=== PATIENT | female | born 1990 | race Caucasian/White ===

== ENCOUNTER 2017-06-07 15:39 | Emergency (ER) | payer MEDICAID ==
[~2017-06-07] VITALS: Ht 170.2 cm; Wt 81.7 kg
[~2017-06-07 15:39] MED LIST: HYDR-569 PO; METH-360 PO; NO HOME MEDS; ONDA8TAB6 PO; PHEN-873 PO; ZOF4T PO
[2017-06-07 16:22] LABS: BASOPHILS % (AUTO) 0.3 % (0-1); EOSINOPHILS # (AUTO) 0.3 X10'3 (0-0.9); EOSINOPHILS % (AUTO) 2.5 % (0-6); HEMATOCRIT 36.4 % (35.0-45.0); HEMOGLOBIN 12.4 g/dl (12.0-16.0); LYMPHOCYTES # (AUTO) 2.1 X10'3 (1.1-4.8); LYMPHOCYTES % (AUTO) 20.4 % (21-51); MEAN CORPUSCULAR HEMOGLOBIN 29.8 PG (27.0-31.0); MEAN CORPUSCULAR HGB CONC 34.2 % (33.0-36.5); MEAN CORPUSCULAR VOLUME 87.2 FL (78-98); MEAN PLATELET VOLUME 9.2 FL (7.4-10.4); MONOCYTES # (AUTO) 0.7 X10'3 (0-0.9); MONOCYTES % (AUTO) 7.1 % (2-12); NEUTROPHILS # (AUTO) 7.2 X10'3 (1.8-7.7); NEUTROPHILS % (AUTO) 69.7 % (42-75); PLATELET COUNT 313 X10'3 (140-440); RED BLOOD COUNT 4.18 X10'6 (4.20-5.60); RED CELL DISTRIBUTION WIDTH 15.6 % (11.5-14.5); WHITE BLOOD COUNT 10.4 X10'3 (4.5-11.0)
[2017-06-07 16:32] LABS: PROTHROMBIN TIME 10.2 SECONDS (9.0-12.0)
[2017-06-07 16:36] LABS: CLARITY,URINE Clear (Clear); COLOR,URINE Yellow (Yellow); GLUCOSE, URINE Negative (Neg); KETONES,URINE Negative (Neg); LEUKOCYTE ESTERASE ,URINE Trace (Neg); NITRITES, URINE Negative (Neg); OCCULT BLOOD,URINE Small (Neg); PROTEIN,URINE Negative (Neg)
[2017-06-07 16:37] LABS: ALANINE AMINOTRANSFERASE 23 U/L (12-78); ALBUMIN 3.9 G/DL (3.4-5.0); ALBUMIN/GLOBULIN RATIO 1.1 (1.1-1.5); ALKALINE PHOSPHATASE 58 IU/L (46-116); ANION GAP 10 (8-16); ASPARTATE AMINO TRANSFERASE 21 U/L (10-37); BILIRUBIN,TOTAL 0.3 MG/DL (0.1-1.0); BLOOD UREA NITROGEN 8 MG/DL (7-18); BUN/CREATININE RATIO 9.5 (6.6-38.0); CALCIUM 8.9 MG/DL (8.5-10.1); CHLORIDE 107 MMOL/L (99-107); CREATININE 0.84 MG/DL (0.40-0.90); GLUCOSE 110 MG/DL (70-104); POTASSIUM 3.5 MMOL/L (3.5-5.1); SODIUM 143 MMOL/L (135-145); TOTAL CARBON DIOXIDE 25.9 MMOL/L (24-32); TOTAL PROTEIN 7.5 G/DL (6.4-8.2); eGFR 80 ML/MIN
[2017-06-07 16:38] LABS: UA COLLECTION TYPE CLN CATCH MIDSTREAM
[2017-06-07 16:39] LABS: URINE HCG NEGATIVE (NEG)
[2017-06-07 16:44] LABS: BACTERIA,URINE FEW /HPF (Neg); RBC,URINE 0-2 /HPF (0-2); SQUAMOUS EPITHELIAL CELL,UR FEW /LPF (FEW); WBC,URINE 0-4 /HPF (0-4)
[2017-06-07] MEDS ORDERED: LORazepam 1 MG tablet PO ONE (17:20)
[2017-06-07 17:35] VITALS: BP 147/98
== END 2017-06-07 17:38 | disposition home or self-care (01) ==
LOC: ER 15:40
DX: N94.6 Dysmenorrhea, unspecified (principal)
CPT/HCPCS: 36415; 80053; 81001; 81025; 85025; 85610; 87088; 99284

== ENCOUNTER 2018-12-30 14:17 | Emergency (ER) | payer MEDICAID ==
[~2018-12-30] VITALS: Ht 167.6 cm; Wt 85.9 kg
[~2018-12-30 14:17] MED LIST changes: +ALBU18HF2 IH; +HYDR-4383 PO; -HYDR-569 PO; +PHEN-786 PO; -PHEN-873 PO
[2018-12-30 16:11] VITALS: BP 114/76
== END 2018-12-30 17:58 | disposition home or self-care (01) ==
LOC: ER 14:17
DX: J20.9 Acute bronchitis, unspecified (principal); J45.909 Unspecified asthma, uncomplicated; F41.9 Anxiety disorder, unspecified; F17.200 Nicotine dependence, unspecified, uncomplicated
CPT/HCPCS: 99281

== ENCOUNTER 2024-08-31 18:29 | Emergency (ER) | payer MEDICAID, OTHER ==
[~2024-08-31] VITALS: Ht 165.1 cm; Wt 94.0 kg
[2024-08-31] MEDS: amox tr/potassium clavulanate 875/125mg TAB PO ONE (19:02)
--- NOTE | 2024-08-31 19:07 | Physician Documentation ---
History of Present Illness ~ Chief Complaint: Bite-animal Stated Complaint: CAT BITES Time Seen by MD: 18:42 Primary Medical Doctor: [facility] Patient is seen today with complaints of cat bite/scratch to her hands bilaterally worse on the right hand. Patient states she has a puncture wound to her right index finger palmar aspect distal phalanx as well as to that same finger on the dorsum radial aspect just proximal to the MCP joint. Patient denies any fevers or chills but states her right hand has become a little more swollen and painful and would like some antibiotic treatment. Patient has no other concern or complaint at this time. Tetanus within 5 years?: Yes Medication Reconciliation Allergies: Coded Allergies: No Known Allergies (Unverified , 06/07/17) Scheduled Hydrocodone/Acetaminophen (Seadrift 5-325 Tablet), 1 TABLET PO Q6H Methocarbamol (Robaxin-750), 1 TAB PO Q8H Ondansetron ODT* (Zofran ODT*), 4 MG PO Q6H Phenazopyridine Hcl (Pyridium tablet), 2 TAB PO TID Scheduled PRN Albuterol Sulfate (Ventolin Hfa), 18 GM IH Q4H PRN for SOB or wheezing Hydrocodone/Acetaminophen (Seadrift 5-325 Tablet), 1 TABLET PO TID PRN for pain Hydrocodone/Acetaminophen (Seadrift 5-325 Tablet), 1 TABLET PO TID PRN for pain Ondansetron Hcl (Zofran), 8 MG PO Q8HPRN PRN for pain Ondansetron ODT* (Zofran ODT*), 8 MG PO Q6H PRN for nausea/vomiting Miscellaneous Medications Home Med List (No Home Medications), (Reported) Past Medical History Past Medical History: Asthma, UTI, Anxiety Past Surgical History: orthopedic surgeries Alcohol Use: None Drug Use: none Lives with: Family Lives In: Home Occupation: employed Review of Systems Constitutional: Denies: chills, fever, weakness Eyes: Denies: pain, blurred vision ENT: Denies: ear pain, nose pain, throat pain, mouth pain Respiratory: Denies: cough, shortness of breath Cardiovascular: Denies: chest pain, palpitations Gastrointestinal: Denies: abdominal pain, nausea, vomiting Genitourinary: Denies: burning, dysuria Female Genitalia: Denies: vaginal discharge, pelvic pain Neurological: Denies: headache, dizziness Musculoskeletal: Denies: pain, swelling Integumentary: Denies: rash, lesions Allergic/Immunologic: Denies: hives, itching Hematologic/Lymphatic: Denies: no symptoms reported Psychiatric: Denies: depression, anxiety Physical Exam Vital Signs: Temperature: 98.4, Heart Rate: 96, Respiratory Rate: 16, BP: 168/78, Pulse Oximetry: 96, Weight: 94.050 Oxygen Flow Rate: 0 Physical Exam General: Awake and Alert, no acute distress. HEENT: Conjunctiva pink, Sclera clear, Mucus Membranes moist. Neck: Supple without masses and tenderness. Resp: Unlabored. Lungs clear to auscultation bilaterally. Heart: Regular Rate and rhythm, normal S1 and S2 without murmur, rub or gallop. Musculoskeletal: Patient on exam does have some very superficial scratches from an apparent animal or cat in the dorsum of the left hand. Patient has puncture wound with abscess formation of the distal phalanx palmar aspect of the right index finger, as well as right index finger just proximal to MCP joint on dorsum/radial aspect. Patient is neurovascularly intact distally. Motor function intact distally. I do not appreciate any of Kanaval's cardinal signs of infectious tenosynovitis at this time. Extremities: No cyanosis,clubbing or edema. Skin: Warm and Dry. Procedures I & D Procedure : Procedure Note Procedure note: Small abscess at distal tuft of right index finger distal phalanx palmar aspect was lanced using an 11 blade after it was sterilely prepped with iodine. Patient tolerated well. Small abscess was also lanced using 11 blade just proximal to the MCP joint of the index finger radial aspect of the dorsum. Patient again tolerated well. Adhesive bandage placed over both sites. Progress Results/Orders Results/Orders Completed Orders - BARBRA RANKIN PAC Amox Tr/Potassium Clavulanate (Augmentin (08/31/24 18:55) Vital Signs 08/31/24 18:32 Temp 98.4 Pulse 96 Resp 16 B/P (MAP) 168/78 Pulse Ox 96 O2 Flow Rate 0 Medical Decision Making Findings Patient is seen today with complaints of cat bite/scratch to her hands bilaterally worse on the right hand. Patient states she has a puncture wound to her right index finger palmar aspect distal phalanx as well as to that same finger on the dorsum radial aspect just proximal to the MCP joint. Patient denies any fevers or chills but states her right hand has become a little more swollen and painful and would like some antibiotic treatment. Patient has no other concern or complaint at this time. Dose of Augmentin 875/125 mg tablet by mouth given to patient in the ED tonight. Prescription of Augmentin 875/125 mg tablets, one tablet by mouth twice a day for 10 days sent to patient's pharmacy. Patient will follow up with primary care in 2-5 days if no better as needed sooner. Return to ED with any worsening, concerning or changing symptoms. Departure Disposition: HOME / SELF CARE / HOMELESS Impression: Primary Impression: Cat bite Qualified Codes: W55.01XA - Bitten by cat, initial encounter Additional Impressions: Cellulitis Qualified Codes: L03.113 - Cellulitis of right upper limb Abscess, hand Abscess of finger of right hand Condition: Improved Discharge Instructions: Animal Bite, Adult Additional Instructions: Small abscess of the finger tip of the index finger palmar aspect was lanced today as well as small abscess my the knuckle or MCP joint of the index finger was also lanced today by myself using an 11 blade scalpel. Patient tolerated well. Dose of Augmentin 875/125 mg tablet by mouth given to patient in the ED tonight. Prescription of Augmentin 875/125 mg tablets, one tablet by mouth twice a day for 10 days sent to patient's pharmacy. Patient will follow up with primary care in 2-5 days if no better as needed sooner. Return to ED with any worsening, concerning or changing symptoms. Referrals: NO PRIMARY CARE PROVIDER (PCP) Prescriptions Amox Tr/Potassium Clavulanate (Augmentin 875-125 Tablet) 1 Each Tablet 1 TAB PO Q12H for 10 Days, #20 TAB Prov: BARBRA RANKIN 08/31/24 Signature Scribe Signature: No scribe Attestation: No scribe BARBRA RANKIN August 31, 2024 19:07
[2024-08-31] MEDS ORDERED: AMOX-117 PO (19:10)
[2024-08-31 19:32] VITALS: BP 164/74; PULSE 94; RESP 16; TEMP 98.6; O2SAT 99
== END 2024-08-31 19:33 | disposition home or self-care (01) ==
LOC: ER 18:30
DX: S61.230A Puncture wound without foreign body of right index finger without damage to nail, initial encounter (principal); L03.113 Cellulitis of right upper limb; L02.511 Cutaneous abscess of right hand; J45.909 Unspecified asthma, uncomplicated; F41.9 Anxiety disorder, unspecified; Z79.899 Other long term (current) drug therapy; W55.01XA Bitten by cat, initial encounter; Y93.89 Activity, other specified; Y92.89 Other specified places as the place of occurrence of the external cause; Y99.8 Other external cause status
CPT/HCPCS: 10060; 26010; 99283; A6449